=== PATIENT | male | born 1955 | race Caucasian/White ===

== ENCOUNTER 2017-02-19 20:01 | Inpatient (IN) | payer MEDICAID ==
[2017-02-19] MEDS ORDERED: Sodium Chloride 0.9% 10 ML Syringe FLUSH PRN (20:59)
[2017-02-19] MEDS ORDERED: Sodium Chloride 0.9% 10 ML SDV FLUSH ONE (21:36)
[2017-02-19] MEDS ORDERED: Iopamidol 612 MG/ML 150 ML Bottle IV SCH (21:45)
[2017-02-19] MEDS ORDERED: Sodium Chloride 0.9% 1,000 ML IV SCH (23:00)
[2017-02-20] MEDS ORDERED: Morphine 2 MG/ML Syringe IVPUSH PRN (00:16)
[2017-02-20] MEDS ORDERED: LORazepam 2 MG/ML MDV IV PRN (00:16)
[2017-02-20] MEDS ORDERED: oxyCODONE 5 MG Tab PO PRN (00:16)
[2017-02-20] MEDS ORDERED: Albuterol 0.083% 2.5 MG/3 ML Neb Soln NEB PRN (00:16)
[2017-02-20] MEDS ORDERED: Ondansetron 4 MG Tab.DIS PO PRN (00:16)
[2017-02-20] MEDS ORDERED: Docusate Sodium 100 MG Cap PO PRN (00:16)
[2017-02-20] MEDS ORDERED: Bisacodyl 5 MG Tab PO PRN (00:16)
[2017-02-20] MEDS ORDERED: Pantoprazole 40 MG Vial IV SCH ×2 (00:16→09:00)
[2017-02-20] MEDS ORDERED: Zolpidem 5 MG Tab PO PRN (00:16)
[2017-02-20] MEDS ORDERED: Acetaminophen 325 MG Tab PO PRN (00:16)
--- NOTE | 2017-02-20 00:55 | EDM.PDOC ---
ED HPI GENERAL MEDICAL PROBLEM - General Chief Complaint: General Stated Complaint: ALLERGIC REACTION TO MEDS Time Seen by Provider: 02/19/17 20:23 Source of Information: Reports: Patient, Family ( Vince) History Limitations: Reports: No limitations - History of Present Illness INITIAL COMMENTS - FREE TEXT/NARRATIVE: This is a 61-year-old male presents emergency room with his , reports medications have been adjusted and feels he is having a reaction to his medication. He reports near fainting event while driving today. He felt profoundly weak and tired. Reports history of 2 months of lower leg edema, medication management with diuretics, new diet started in November high-protein low-carb. Onset: gradual Duration: Week(s): (8), Getting worse Location: Reports: generalized Quality: Reports: Ache Severity: moderate (Near fainting) Improves with: Reports: Rest (Percent full report tiny subdural hematoma Syndrome who is) Worsens with: Reports: Movement Context: Reports: Other (Illness 2 months) Associated Symptoms: Reports: syncope - Related Data Allergies Allergy/AdvReac Type Severity Reaction Status Date / Time No Known Allergies Allergy Verified 01/08/17 09:42 Home Meds: Home Meds Aspirin [Halfprin] 81 mg PO DAILY 10/07/16 [History] Clobetasol [Clobetasol Propionate 0.05%] 1 applic TOP BID 10/07/16 [History] Folic Acid 1 mg PO DAILY 10/07/16 [History] Furosemide [Lasix] 60 mg PO DAILY 10/07/16 [History] Ibuprofen [Motrin] 800 mg PO BIDM PRN 10/07/16 [History] Lisinopril/Hydrochlorothiazide [Lisinopril-Hctz 10-12.5 mg Tab] 1 each PO DAILY 10/07/16 [History] Methotrexate 15 mg PO Q7D 10/07/16 [History] Multivitamin with Minerals [Multiple Vitamin] 1 tab PO DAILY 10/07/16 [History] Sildenafil [Revatio] 20 mg PO DAILY 10/07/16 [History] atorvaSTATin [Lipitor] 10 mg PO BEDTIME 10/07/16 [History] Metolazone [Metolazone] 2.5 mg PO Q72H 02/19/17 [History] Potassium Chloride [Potassium Chloride] 20 meq PO DAILY 02/19/17 [History] Past Medical History Cardiovascular History: Reports: Other (see below) Other Cardiovascular History: noted diuretics Musculoskeletal History: Reports: RA, Other (see below) Other Musculoskeletal History: chornic left pain. steroid injections Dermatologic History: Reports: Psoriasis - Infectious Disease History Infectious Disease History: Reports: Chicken pox - Past Surgical History HEENT Surgical History: Reports: LASIK Cardiovascular Surgical History: Reports: None Social & Family History - Family History Family Medical History: Noncontributory - Tobacco Use Smoking Status *Q: Never Smoker - Caffeine Use Caffeine Use: Reports: None - Recreational Drug Use Recreational Drug Use: No - Living Situation & Occupation Living situation: Reports: , with family (Has and 2 sons age 3 and 6 years) ED ROS GENERAL - Review of Systems Review Of Systems: See Below Constitutional: Reports: weakness, fatigue HEENT: Reports: No symptoms Respiratory: Reports: No Symptoms Cardiovascular: Reports: No symptoms Endocrine: Reports: fatigue GI/Abdominal: Reports: No symptoms : Reports: no symptoms Musculoskeletal: Reports: back pain, leg pain Skin: Reports: wound Neurological: Reports: No Symptoms Psychiatric: Reports: No symptoms Hematologic/Lymphatic: Reports: no symptoms Immunologic: Reports: no symptoms ED EXAM, GENERAL - Physical Exam Exam: See Below Exam Limited By: No limitations General Appearance: alert, WD/WN, no apparent distress Ears: normal external exam, normal canal, hearing grossly normal, normal TMs Ear Exam: bilateral ear: auricle normal, canal normal, TM normal Nose: normal inspection, normal mucosa, no blood Throat/Mouth: Normal inspection, Normal lips, Normal teeth, Normal gums, Normal oropharynx, Normal voice, No airway compromise Head: atraumatic, normocephalic Neck: normal inspection, supple, non-tender, full range of motion Respiratory/Chest: no respiratory distress, lungs clear, normal breath sounds, no accessory muscle use, chest non-tender Cardiovascular: normal peripheral pulses, regular rate, rhythm, no edema, no gallop, no JVD, no murmur, no rub GI/Abdominal: normal bowel sounds, soft, non tender, no organomegaly, no distention, no abnormal bruit, no mass (Male) Exam: Deferred Rectal (Males) Exam: Deferred (First is that she'll 70 she is) Back Exam: normal inspection, full range of motion, NT Extremities: normal range of motion, pedal edema (Requesting edema left leg right leg 2+ pitting edema), leg pain Neurological: alert, oriented, CN II-XII intact, normal cognition, normal gait, normal reflexes, no motor/sensory deficits Psychiatric: normal affect, normal mood Skin Exam: Warm, Dry, Intact, Normal color, No rash Lymphatic: no adenopathy Course - Vital Signs Last Recorded V/S: Last Vital Signs Temp 36.3 C 02/20/17 00:29 Pulse 79 02/20/17 00:29 Resp 18 02/20/17 00:29 BP 119/70 02/20/17 00:29 Pulse Ox 99 02/20/17 00:29 Orthostatic Blood Pressure [ 93/57 Standing] Orthostatic Blood Pressure [ 113/52 Sitting] Orthostatic Blood Pressure [ 95/59 Supine] - Orders/Labs/Meds Orders: Active Orders 24 hr Category Date Time Status Abdomen Pelvis w Cont [CT] Stat Exams 02/19/17 20:58 Taken Sodium Chloride 0.9% [Normal Saline] 1,000 ml Med 02/19/17 23:00 Active IV ASDIRECTED Sodium Chloride 0.9% [Saline Flush] Med 02/19/17 20:59 Active 10 ml FLUSH ASDIRECTED PRN Saline Lock Insert [OM.PC] Routine Oth 02/19/17 20:59 Ordered Medication Orders Acetaminophen (Tylenol) 650 mg PO Q4H PRN PRN Reason: Pain (Mild 1-3)/fever Albuterol (Proventil Neb Soln) 2.5 mg NEB Q4H PRN PRN Reason: Shortness Of Breath/wheezing Bisacodyl (Dulcolax) 5 mg PO DAILY PRN PRN Reason: Constipation Docusate Sodium (Colace) 100 mg PO BID PRN PRN Reason: Constipation Sodium Chloride (Normal Saline) 1,000 mls @ 125 mls/hr IV ASDIRECTED KAYLAH Lorazepam (Ativan) 1 mg IV Q6H PRN PRN Reason: Nausea/Vomiting Morphine Sulfate (Morphine) 2 mg IVPUSH Q2H PRN PRN Reason: Pain (severe 7-10) Ondansetron HCl (Zofran Odt) 4 mg PO Q6H PRN PRN Reason: Nausea able to take PO Oxycodone HCl (Oxycodone) 10 mg PO Q4H PRN PRN Reason: Pain (moderate 4-6) Pantoprazole Sodium (Protonix Iv) 40 mg IV Q24H KAYLAH Sodium Chloride (Saline Flush) 10 ml FLUSH ASDIRECTED PRN PRN Reason: Keep Vein Open Zolpidem Tartrate (Ambien) 5 mg PO BEDTIME PRN PRN Reason: Sleep Labs: Laboratory Tests 02/19/17 02/19/17 Range/Units 21:00 21:00 WBC 9.4 (4.5-11.0) K/uL RBC 3.82 L (4.30-5.90) M/uL Hgb 11.5 L (12.0-15.0) g/dL Hct 34.6 L (40.0-54.0) % MCV 91 (80-98) fL MCH 30 (27-31) pg MCHC 33 (32-36) % Plt Count 261 (150-400) K/uL Neut % (Auto) 57 (36-66) % Lymph % (Auto) 25 (24-44) % [place] % (Auto) 12 H (2-6) % Eos % (Auto) 6 H (2-4) % Baso % (Auto) 1 (0-1) % Sodium 139 L (140-148) mmol/L Potassium 4.2 (3.6-5.2) mmol/L Chloride 100 (100-108) mmol/L Carbon Dioxide 28 (21-32) mmol/L Anion Gap 15.2 H (5.0-14.0) mmol/L BUN 4 L D (7-18) mg/dL Creatinine 3.1 H D (0.8-1.3) mg/dL Est Cr Clr Drug Dosing 27.33 mL/min Estimated GFR (MDRD) 21 L (>60) Glucose 103 (74-106) mg/dL Calcium 8.8 (8.5-10.1) mg/dL Total Bilirubin 0.4 (0.2-1.0) mg/dL AST 21 (15-37) U/L ALT 32 (12-78) U/L Alkaline Phosphatase 101 (46-116) U/L Total Protein 8.7 H (6.4-8.2) g/dL Albumin 3.7 (3.4-5.0) g/dL Globulin 5.0 H (2.3-3.5) g/dL Albumin/Globulin Ratio 0.7 L (1.2-2.2) Meds: Medications Generic Name Dose Route Start Last Admin Trade Name Frecarmelo PRN Reason Stop Dose Admin Acetaminophen 650 mg 02/20/17 00:16 Tylenol PO Q4H PRN Pain (Mild 1-3)/fever Albuterol 2.5 mg 02/20/17 00:16 Proventil Neb Soln NEB Q4H PRN Shortness Of Breath/wheezing Bisacodyl 5 mg 02/20/17 00:16 Dulcolax PO DAILY PRN Constipation Docusate Sodium 100 mg 02/20/17 00:16 Colace PO BID PRN Constipation Sodium Chloride 1,000 mls @ 125 mls/hr 02/19/17 23:00 Normal Saline IV ASDIRECTED KAYLAH Lorazepam 1 mg 02/20/17 00:16 Ativan IV Q6H PRN Nausea/Vomiting Morphine Sulfate 2 mg 02/20/17 00:16 Morphine IVPUSH Q2H PRN Pain (severe 7-10) Ondansetron HCl 4 mg 02/20/17 00:16 Zofran Odt PO Q6H PRN Nausea able to take PO Oxycodone HCl 10 mg 02/20/17 00:16 Oxycodone PO Q4H PRN Pain (moderate 4-6) Pantoprazole Sodium 40 mg 02/20/17 00:16 Protonix Iv IV Q24H KAYLAH Sodium Chloride 10 ml 02/19/17 20:59 Saline Flush FLUSH ASDIRECTED PRN Keep Vein Open Zolpidem Tartrate 5 mg 02/20/17 00:16 Ambien PO BEDTIME PRN Sleep Discontinued Medications Generic Name Dose Route Start Last Admin Trade Name Eusebio PRN Reason Stop Dose Admin Sodium Chloride 85 mls @ 3 mls/sec 02/19/17 21:36 02/19/17 22:46 Normal Saline IV 02/19/17 21:37 Not Given ONETIME ONE Iopamidol 150 ml 02/19/17 21:45 Isovue-300 (61%) IV . DIRECTED KAYLAH Sodium Chloride 10 ml 02/19/17 21:36 02/19/17 22:46 Normal Saline FLUSH 02/19/17 21:37 Not Given ONETIME ONE Departure - Departure Time of Disposition: 00:30 Disposition: Admitted As Inpatient 68 Condition: good Clinical Impression: Bilateral lower extremity edema, Acute renal failure - My Orders Last 24 Hours: My Active Orders 02/19/17 20:58 Abdomen Pelvis w Cont [CT] Stat 02/19/17 20:59 Sodium Chloride 0.9% [Saline Flush] 10 ml FLUSH ASDIRECTED PRN Saline Lock Insert [OM.PC] Routine 02/19/17 23:00 Sodium Chloride 0.9% [Normal Saline] 1,000 ml IV ASDIRECTED - Assessment/Plan Last 24 Hours: My Active Orders 02/19/17 20:58 Abdomen Pelvis w Cont [CT] Stat 02/19/17 20:59 Sodium Chloride 0.9% [Saline Flush] 10 ml FLUSH ASDIRECTED PRN Saline Lock Insert [OM.PC] Routine 02/19/17 23:00 Sodium Chloride 0.9% [Normal Saline] 1,000 ml IV ASDIRECTED
[2017-02-20 07:21] VITALS: BP 101/58
--- NOTE | 2017-02-20 07:39 | PCM.HP ---
H&P History of Present Illness - General Date of Service: 02/19/17 Admit Problem/Dx: Admission Diagnosis/Problem Admission Diagnosis/Problem Acute renal failure Source of Information: Patient, Family () History Limitations: Reports: No limitations - History of Present Illness Initial Comments - Free Text/Narative: INITIAL COMMENTS - FREE TEXT/NARRATIVE: This is a 61-year-old male presents emergency room with his , reports medications have been adjusted and feels he is having a reaction to his medication. He is feeling weak, fatigue, today [place] the [employer] became so faint, started to see "blackness and a tunnel" he turned around and came home , then to hospital. They are concerned because prior to a cortisone shot for his hip on 12/04/2016, he was well. He was overweight, but did not have swollen legs or other symptoms. Reports history of 2 months of lower leg edema, medication management with diuretics, new diet started in November high-protein low-carb. while in ER, CT abdomen-pelvis is negative; labs. cr. increased from 1.0 on Wednesday to 3.2, GFR 21 consulted with Hospitalist, will admit to hospital for further evaluation, iv fluids, will hold meds. reassess in am and Mrs. Tatum agree with plan of care. Onset of Symptoms: Reports: today (near syncope episode), gradual (lower leg edema for 2 months) Location: Reports: generalized Severity: moderate Improves with: Reports: None Worsens with: Reports: None Associated Symptoms: Reports: malaise, syncope, weakness - Related Data Allergies/Adverse Reactions: Allergies Allergy/AdvReac Type Severity Reaction Status Date / Time No Known Allergies Allergy Verified 01/08/17 09:42 Home Medications: Home Meds Aspirin [Halfprin] 81 mg PO DAILY 10/07/16 [History] Clobetasol [Clobetasol Propionate 0.05%] 1 applic TOP BID 10/07/16 [History] Folic Acid 1 mg PO DAILY 10/07/16 [History] Furosemide [Lasix] 60 mg PO DAILY 10/07/16 [History] Ibuprofen [Motrin] 800 mg PO BIDM PRN 10/07/16 [History] Lisinopril/Hydrochlorothiazide [Lisinopril-Hctz 10-12.5 mg Tab] 1 each PO DAILY 10/07/16 [History] Methotrexate 15 mg PO Q7D 10/07/16 [History] Multivitamin with Minerals [Multiple Vitamin] 1 tab PO DAILY 10/07/16 [History] Sildenafil [Revatio] 20 mg PO DAILY 10/07/16 [History] atorvaSTATin [Lipitor] 10 mg PO BEDTIME 10/07/16 [History] Metolazone [Metolazone] 2.5 mg PO Q72H 02/19/17 [History] Potassium Chloride [Potassium Chloride] 20 meq PO DAILY 02/19/17 [History] Past Medical History Cardiovascular History: Reports: Other (see below) Other Cardiovascular History: noted diuretics Musculoskeletal History: Reports: RA, Other (see below) Other Musculoskeletal History: chornic left pain. steroid injections Dermatologic History: Reports: Psoriasis - Infectious Disease History Infectious Disease History: Reports: Chicken pox - Past Surgical History HEENT Surgical History: Reports: LASIK Cardiovascular Surgical History: Reports: None Social & Family History - Family History Family Medical History: Noncontributory - Tobacco Use Smoking Status *Q: Never Smoker - Caffeine Use Caffeine Use: Reports: None - Recreational Drug Use Recreational Drug Use: No - Living Situation & Occupation Living situation: Reports: , with family (Has and 2 sons age 3 and 6 years) H&P Review of Systems - Review of Systems: Review Of Systems: See Below General: Reports: weakness, fatigue HEENT: Reports: no symptoms Pulmonary: Reports: No Symptoms, Other (sleep apnea, use of Bi-pap ) Cardiovascular: Reports: edema, lightheadedness, syncope, blood pressure problem Gastrointestinal: Reports: No symptoms Genitourinary: Reports: no symptoms Musculoskeletal: Reports: muscle pain, other (rheumatoid arthritis) Skin: Reports: rash (psoriasis) Psychiatric: Reports: no symptoms Neurological: Reports: No Symptoms Hematologic/Lymphatic: Reports: no symptoms Immunologic: Reports: no symptoms Exam - Exam Exam: See Below - Vital Signs Vital Signs: Last Vital Signs Temp 36.4 C 02/20/17 07:00 Pulse 74 02/20/17 07:00 Resp 18 02/20/17 07:00 BP 101/58 L 02/20/17 07:00 Pulse Ox 94 L 02/20/17 07:00 Weight: 158.1 kg - Exam General: alert, oriented, 4 HEENT: PERRLA, Hearing intact, Mucosa moist & pink, Nares patent, Normal nasal septum, Posterior pharynx clear, Conjunctiva clear, EOMI, EACs clear, TMs clear Neck: supple, trachea midline, 2 Lungs: Clear to auscultation, Normal respiratory effort Cardiovascular: regular rate, regular rhythm, normal S1, normal S2 Abdomen: normal bowel sounds, soft (Male) Exam: Deferred Rectal (Males) Exam: Deferred Back Exam: normal inspection, full range of motion Extremities: edema (left left 3+ pitting edema. right leg 2 + pitting edma) Skin: warm, dry, intact Neurological: reflexes equal bilateral, strength equal bilateral Neuro Extensive - Mental Status: alert, oriented x3, normal mood/affect, normal cognition Neuro Extensive - Motor, Sensory, Reflexes: normal gait, normal reflexes Psychiatric: alert, normal affect, normal mood - Patient Data Lab Results last 24 hrs: Laboratory Results - last 24 hr 02/20/17 02/20/17 02/20/17 Range/Units 00:16 05:24 05:24 WBC 8.0 (4.5-11.0) K/uL RBC 3.49 L (4.30-5.90) M/uL Hgb 10.5 L (12.0-15.0) g/dL Hct 31.9 L (40.0-54.0) % MCV 91 (80-98) fL MCH 30 (27-31) pg MCHC 33 (32-36) % Plt Count 232 (150-400) K/uL Neut % (Auto) 54 (36-66) % Lymph % (Auto) 23 L (24-44) % [place] % (Auto) 15 H (2-6) % Eos % (Auto) 7 H (2-4) % Baso % (Auto) 1 (0-1) % Sodium 140 (140-148) mmol/L Potassium 4.4 (3.6-5.2) mmol/L Chloride 104 (100-108) mmol/L Carbon Dioxide 27 (21-32) mmol/L Anion Gap 9.2 (5.0-14.0) mmol/L BUN 59 H D (7-18) mg/dL Creatinine 2.8 H (0.8-1.3) mg/dL Est Cr Clr Drug Dosing 30.25 mL/min Estimated GFR (MDRD) 23 L (>60) Glucose 93 (74-106) mg/dL Calcium 8.4 L (8.5-10.1) mg/dL Urine Color Yellow Urine Appearance Clear Urine pH 5.0 (4.5-8.0) Ur Specific [place] 1.015 (1.008-1.030) Urine Protein Negative (NEGATIVE) mg/dL Urine Glucose (UA) 100 H (NEGATIVE) mg/dL Urine Ketones Negative (NEGATIVE) mg/dL Urine Occult Blood Trace (NEGATIVE) Urine Nitrite Negative (NEGAITVE) Urine Bilirubin Negative (NEGATIVE) Urine Urobilinogen Normal (NORMAL) mg/dL Ur Leukocyte Esterase Negative (NEGATIVE) Urine RBC 0-5 (0-5) Urine WBC 0-5 (0-5) Ur Epithelial Cells Few Amorphous Sediment Not seen Urine Bacteria Not seen Urine Mucus Not seen Result Diagrams: 02/20/17 05:24 02/20/17 05:24 *Q Meaningful Use (ADM) - VTE *Q VTE Criteria *Q: - Stroke *Q Stroke Criteria *Q: - AMI *Q AMI Criteria *Q: - Problem List (1) Acute renal failure SNOMED Code(s): 62361329 ICD Code: N17.9 - ACUTE KIDNEY FAILURE, UNSPECIFIED Status: Acute Priority: High Current Visit: Yes Qualifiers: Acute renal failure type: unspecified Qualified Code(s): N17.9 - Acute kidney failure, unspecified (2) Bilateral lower extremity edema SNOMED Code(s): 414951684 ICD Code: R60.0 - LOCALIZED EDEMA Status: Acute Priority: High Current Visit: Yes (3) Essential hypertension with goal blood pressure less than 140/90 SNOMED Code(s): 02463307 ICD Code: I10 - ESSENTIAL (PRIMARY) HYPERTENSION Status: Chronic Priority : Medium Current Visit: Yes Problem List Initiated/Reviewed/Updated: Yes Orders Last 24hrs: Active Orders 24 hr Category Date Time Status Patient Status [ADT] Routine ADT 02/20/17 00:16 Active Cardiac Monitoring [RC] .As Directed Care 02/20/17 00:16 Active Intake and Output [RC] QSHIFT Care 02/20/17 00:16 Active Oxygen Therapy [RC] PRN Care 02/20/17 00:16 Active Pulse Oximetry [RC] CONTINUOUS Care 02/20/17 00:16 Active RT Aerosol Therapy [RC] ASDIRECTED Care 02/20/17 00:16 Active Up ad Joanie [RC] ASDIRECTED Care 02/20/17 00:16 Active VTE/DVT Education [RC] Per Unit Routine Care 02/20/17 00:16 Active Vital Signs [RC] Q4H Care 02/20/17 00:16 Active Regular Diet [DIET] Diet 02/20/17 Breakfast Active Echo Comp wo Cont [US] Routine Exams 02/20/17 00:16 Ordered Acetaminophen [Tylenol] Med 02/20/17 00:16 Active 650 mg PO Q4H PRN Albuterol [Proventil Neb Soln] Med 02/20/17 00:16 Active 2.5 mg NEB Q4H PRN Bisacodyl [Dulcolax] Med 02/20/17 00:16 Active 5 mg PO DAILY PRN Docusate Sodium [Colace] Med 02/20/17 00:16 Active 100 mg PO BID PRN LORazepam [Ativan] Med 02/20/17 00:16 Active 1 mg IV Q6H PRN Morphine Med 02/20/17 00:16 Active 2 mg IVPUSH Q2H PRN Ondansetron [Zofran ODT] Med 02/20/17 00:16 Active 4 mg PO Q6H PRN Pantoprazole [ProTONIX IV] Med 02/20/17 09:00 Active 40 mg IV Q24H Zolpidem [Ambien] Med 02/20/17 00:16 Active 5 mg PO BEDTIME PRN oxyCODONE Med 02/20/17 00:16 Active 10 mg PO Q4H PRN Sequential Compression Device [OM.PC] Per Unit Routine Oth 02/20/17 00:16 Ordered Resuscitation Status Routine Resus Stat 02/19/17 23:41 Ordered Medication Orders Acetaminophen (Tylenol) 650 mg PO Q4H PRN PRN Reason: Pain (Mild 1-3)/fever Albuterol (Proventil Neb Soln) 2.5 mg NEB Q4H PRN PRN Reason: Shortness Of Breath/wheezing Bisacodyl (Dulcolax) 5 mg PO DAILY PRN PRN Reason: Constipation Docusate Sodium (Colace) 100 mg PO BID PRN PRN Reason: Constipation Sodium Chloride (Normal Saline) 1,000 mls @ 125 mls/hr IV ASDIRECTED KAYLAH Last Admin: 02/20/17 01:04 Dose: 125 mls/hr Lorazepam (Ativan) 1 mg IV Q6H PRN PRN Reason: Nausea/Vomiting Morphine Sulfate (Morphine) 2 mg IVPUSH Q2H PRN PRN Reason: Pain (severe 7-10) Ondansetron HCl (Zofran Odt) 4 mg PO Q6H PRN PRN Reason: Nausea able to take PO Oxycodone HCl (Oxycodone) 10 mg PO Q4H PRN PRN Reason: Pain (moderate 4-6) Pantoprazole Sodium (Protonix Iv) 40 mg IV Q24H [facility] Sodium Chloride (Saline Flush) 10 ml FLUSH ASDIRECTED PRN PRN Reason: Keep Vein Open Zolpidem Tartrate (Ambien) 5 mg PO BEDTIME PRN PRN Reason: Sleep Assessment/Plan Comment:: ASSESSMENT / PLAN This is a 61-year-old male presents emergency room with his , reports medications have been adjusted and feels he is having a reaction to his medication. He is feeling weak, fatigue, today while [place] the [employer] became so faint, started to see "blackness and a tunnel" he turned around and came home , then to hospital. They are concerned because prior to a cortisone shot for his hip on 12/04/2016, he was well. He was overweight, but did not have swollen legs or other symptoms. Reports history of 2 months of lower leg edema, medication management with diuretics, new diet started in November high-protein low-carb. while in ER, CT abdomen-pelvis is negative; labs. cr. increased from 1.0 on Wednesday to 3.2, GFR 21 consulted with Hospitalist, will admit to hospital for further evaluation, iv fluids, will hold meds. reassess in am and Mrs. Tatum agree with plan of care. dx; acute renal failure, hypotension, lower leg edema Plan -Admit to [address] [place] [address] for further monitoring -Telemetry -IV fluids for rehydration NS at 125 mL per hour -hold all home medications, reassess in am -Order for Echo of heart in a.m. -And a.m. labs: CBC, BMP Maintenance issues -Orders ; hold all home meds -Nutrition: Regular diet -Sullivan catheter not indicated at this time -DVT: SCD -GI Prophalaxis: Protonix 40 mg CODE STATUS: Full Admission status: Admit to [address] [place] [address] Admission justification. This patient will be admitted for inpatient services and is medically appropriate meeting medical necessity for inpatient admission as outlined in my documentation. I reasonably expect the patient will require inpatient services that span. Time over 2 midnights. I reasonably expect this patient to be discharged or transferred within 96 hours after admission to the critical access hospital. Disposition; home with [facility] Primary care provider: Dr. Kirill Reed
--- NOTE | 2017-02-20 10:52 | PCM.DCSUM1 ---
Discharge Summary - Hospital Course Brief History: 61-year-old male with history of obesity, hypertension who presented with presyncope and was admitted for management of lower extremity edema and acute kidney injury as well as observation of the syncope. - Discharge Data Discharge Date: 02/20/17 Discharge Disposition: Home, Self-Care 01 Condition: Good - Discharge Diagnosis/Problem(s) (1) Pre-syncope SNOMED Code(s): 388322802 ICD Code: R55 - SYNCOPE AND COLLAPSE Status: Acute (2) Acute renal failure SNOMED Code(s): 93426000 ICD Code: N17.9 - ACUTE KIDNEY FAILURE, UNSPECIFIED Status: Acute Priority: High Qualifiers: Acute renal failure type: unspecified Qualified Code(s): N17.9 - Acute kidney failure, unspecified (3) Bilateral lower extremity edema SNOMED Code(s): 505782912 ICD Code: R60.0 - LOCALIZED EDEMA Status: Acute Priority: High - Patient Summary/Data Hospital Course: Salvatore presented to the emergency room with weakness fatigue and a presyncopal episode while driving. Workup in the emergency room was remarkable for acute kidney injury. He was admitted to the hospital for observation. He received some IV fluids overnight following admission and had some improvement in his kidney function with a decline in his creatinine from 3.1 to 2.8. His vital signs have all been stable and he has not had any difficulty with dysrhythmias based on telemetry monitoring. Further discussion the morning after admission revealed that he has recently had his diuretics increased to help manage his chronic lower extremity edema. After the diuretics were increased and metolazone was added he started having difficulty with mild presyncopal episodes and fatigue. He has noticed only minimal change in his lower extremity edema since that change in medications. I suspect that his acute kidney injury is a combination of medications with her current use of both ibuprofen and lisinopril as well as hypovolemia from the diuretic increase. I did look at his heart with the ultrasound at the bedside and she appears to have a very normal left ventricular function and I did not appreciate any valvular abnormalities though the ultrasound was limited by his body habitus. I suspect that his lower extremity edema is related to a chronic venous insufficiency type picture. I don't believe that diuretics will be much of a benefit and that he would get more benefit from utilizing compression socks and elevation of his lower extremities. We did decrease his furosemide down to 20 mg once a day and discontinued the metolazone. He will be utilizing the compression socks and try and elevate his legs as much as possible. I advised him to avoid using ibuprofen for the next few days while his kidney function returns to normal. He will be utilizing acetaminophen for breakthrough pain control during that time. Advised him to followup with Dr. Reed for repeat lab testing later this week. He has not had a recurrence of his presyncopal episode during the hospital stay and I believe he is safe for outpatient management at this time. He was initially admitted to inpatient status with the idea that his condition would likely take 2 midnights were more to treat but he improved more quickly than expected and was able to be discharged the day after admission. - Patient Instructions Diet: Usual Diet as Tolerated Activity: As Tolerated Driving: Do Not Drive (may resume driving if you have 24 hours without an episode of feeling like you will pass out) Showering/Bathing: May Shower Notify Provider of: Increased Pain, Nausea and/or Vomiting Other/Special Instructions: 1. You were in the hospital for observation after an episode of pre-syncope. We noticed a significant decline in your kidney function based on laboratory testing. I suspect the episode of feeling like you 're going to pass out was caused by a low circulating blood volume that was the result of too many diuretic medications. I would recommend that you decrease your furosemide dose to 20 mg once a day and stop taking the metolazone. I think you will have more luck controlling your swelling with tight socks on your legs from the foot up to the knee as well as elevating your legs several times a day and at night if able. your heart looked normal with the ultrasound test we did during hospital stay. 2. I would recommend that you not take ibuprofen for the next several days to allow your kidneys a chance to return to normal. You can use acetaminophen 650 mg up to 4 times a day or 1000 mg up to 3 times a day to help with your break through joint pain. 3. Please seek medical attention if you develop fever greater than 101, have recurrence of your symptoms of feeling like you are going to pass out, you develop severe edema, you develop sudden onset of shortness of breath or chest pain. 4. Follow up with Dr. Reed in 3-4 days and have your kidney function rechecked - Discharge Plan Home Medications: Home Meds Aspirin [Halfprin] 81 mg PO DAILY 10/07/16 [History] Clobetasol [Clobetasol 0.05%] 1 applic TOP BID 10/07/16 [History] Folic Acid 1 mg PO DAILY 10/07/16 [History] Ibuprofen [Motrin] 800 mg PO BIDM PRN 10/07/16 [History] Lisinopril/Hydrochlorothiazide [Lisinopril-Hctz 10-12.5 mg Tab] 1 each PO DAILY 10/07/16 [History] Methotrexate 15 mg PO Q7D 10/07/16 [History] Multivitamin with Minerals [Multiple Vitamin] 1 tab PO DAILY 10/07/16 [History] Sildenafil [Revatio] 20 mg PO DAILY 10/07/16 [History] atorvaSTATin [Lipitor] 10 mg PO BEDTIME 10/07/16 [History] Potassium Chloride 20 meq PO DAILY 02/19/17 [History] Furosemide [Lasix] 20 mg PO DAILY #0 02/20/17 [Rx] Patient Handouts: Acute Kidney Injury Referrals: Kirill Reed MD [Primary Care Provider] - (follow up Wednesday or Wednesday - recheck BMP after hospital stay for ERIC, pre-syncope) - Discharge Summary/Plan Comment DC Time >30 min.: No (25) - Patient Data Vitals - Most Recent: Last Vital Signs Temp 36.4 C 02/20/17 07:00 Pulse 74 02/20/17 07:00 Resp 18 02/20/17 07:00 BP 101/58 L 02/20/17 07:00 Pulse Ox 92 L 02/20/17 07:52 Weight - Most Recent: 158.1 kg I&O - Last 24 hours: Intake & Output 02/19/17 02/20/17 02/20/17 22:59 06:59 14:59 Intake Total 681 600 Output Total 125 Balance 556 600 Lab Results - Last 24 hrs: Laboratory Results - last 24 hr 02/20/17 02/20/17 02/20/17 Range/Units 00:16 05:24 05:24 WBC 8.0 (4.5-11.0) K/uL RBC 3.49 L (4.30-5.90) M/uL Hgb 10.5 L (12.0-15.0) g/dL Hct 31.9 L (40.0-54.0) % MCV 91 (80-98) fL MCH 30 (27-31) pg MCHC 33 (32-36) % Plt Count 232 (150-400) K/uL Neut % (Auto) 54 (36-66) % Lymph % (Auto) 23 L (24-44) % [place] % (Auto) 15 H (2-6) % Eos % (Auto) 7 H (2-4) % Baso % (Auto) 1 (0-1) % Sodium 140 (140-148) mmol/L Potassium 4.4 (3.6-5.2) mmol/L Chloride 104 (100-108) mmol/L Carbon Dioxide 27 (21-32) mmol/L Anion Gap 9.2 (5.0-14.0) mmol/L BUN 59 H D (7-18) mg/dL Creatinine 2.8 H (0.8-1.3) mg/dL Est Cr Clr Drug Dosing 30.25 mL/min Estimated GFR (MDRD) 23 L (>60) Glucose 93 (74-106) mg/dL Calcium 8.4 L (8.5-10.1) mg/dL Urine Color Yellow Urine Appearance Clear Urine pH 5.0 (4.5-8.0) Ur Specific [place] 1.015 (1.008-1.030) Urine Protein Negative (NEGATIVE) mg/dL Urine Glucose (UA) 100 H (NEGATIVE) mg/dL Urine Ketones Negative (NEGATIVE) mg/dL Urine Occult Blood Trace (NEGATIVE) Urine Nitrite Negative (NEGAITVE) Urine Bilirubin Negative (NEGATIVE) Urine Urobilinogen Normal (NORMAL) mg/dL Ur Leukocyte Esterase Negative (NEGATIVE) Urine RBC 0-5 (0-5) Urine WBC 0-5 (0-5) Ur Epithelial Cells Few Amorphous Sediment Not seen Urine Bacteria Not seen Urine Mucus Not seen Med Orders - Current: Current Medications Acetaminophen (Tylenol) 650 mg PO Q4H PRN PRN Reason: Pain (Mild 1-3)/fever Albuterol (Proventil Neb Soln) 2.5 mg NEB Q4H PRN PRN Reason: Shortness Of Breath/wheezing Bisacodyl (Dulcolax) 5 mg PO DAILY PRN PRN Reason: Constipation Docusate Sodium (Colace) 100 mg PO BID PRN PRN Reason: Constipation Sodium Chloride (Normal Saline) 1,000 mls @ 125 mls/hr IV ASDIRECTED [facility] Last Admin: 02/20/17 01:04 Dose: 125 mls/hr Lorazepam (Ativan) 1 mg IV Q6H PRN PRN Reason: Nausea/Vomiting Morphine Sulfate (Morphine) 2 mg IVPUSH Q2H PRN PRN Reason: Pain (severe 7-10) Ondansetron HCl (Zofran Odt) 4 mg PO Q6H PRN PRN Reason: Nausea able to take PO Oxycodone HCl (Oxycodone) 10 mg PO Q4H PRN PRN Reason: Pain (moderate 4-6) Pantoprazole Sodium (Protonix Iv) 40 mg IV Q24H [facility] Last Admin: 02/20/17 08:01 Dose: 40 mg Sodium Chloride (Saline Flush) 10 ml FLUSH ASDIRECTED PRN PRN Reason: Keep Vein Open Zolpidem Tartrate (Ambien) 5 mg PO BEDTIME PRN PRN Reason: Sleep Discontinued Medications Sodium Chloride (Normal Saline) 85 mls @ 3 mls/sec IV ONETIME ONE Stop: 02/19/17 21:37 Last Admin: 02/19/17 22:46 Dose: Not Given Iopamidol (Isovue-300 (61%)) 150 ml IV . DIRECTED [facility] Pantoprazole Sodium (Protonix Iv) 40 mg IV Q24H [facility] Last Admin: 02/20/17 01:06 Dose: Not Given Sodium Chloride (Normal Saline) 10 ml FLUSH ONETIME ONE Stop: 02/19/17 21:37 Last Admin: 02/19/17 22:46 Dose: Not Given *Q Meaningful Use (DIS) - VTE *Q VTE Criteria *Q: - Stroke *Q Stroke Criteria *Q: - AMI *Q AMI Criteria *Q:
== END 2017-02-20 12:00 | disposition home or self-care (01) | DRG 460 ==
LOC: JP.ED 20:01 → JP.MS 23:38
PROVIDERS: ADMIT Internal Medicine; ATTEND Internal Medicine
DX: N17.9 Acute kidney failure, unspecified (principal); R60.0 Localized edema; I10 Essential (primary) hypertension; M06.9 Rheumatoid arthritis, unspecified; G89.29 Other chronic pain; E86.1 Hypovolemia; Z79.82 Long term (current) use of aspirin; T50.2X5A Adverse effect of carbonic-anhydrase inhibitors, benzothiadiazides and other diuretics, initial encounter; Y92.810 Car as the place of occurrence of the external cause; R55 Syncope and collapse
CPT/HCPCS: 36415; 74177; 80048; 80053; 81001; 85025; 99285-25; C9113; J7040